=== PATIENT | female | born 1950 | race Caucasian/White ===

== ENCOUNTER 2021-04-06 07:57 | Day surgery (SDC) | payer MEDICARE ==
[~2021-04-06] VITALS: Ht 167.6 cm; Wt 98.3 kg
[2021-04-06 08:26] VITALS: BP 124/82
== END 2021-04-06 14:20 | disposition home or self-care (01) ==
LOC: OUT 07:57
PROVIDERS: ATTEND Orthopaedic Surgery
DX: M19.011 Primary osteoarthritis, right shoulder (principal); M25.711 Osteophyte, right shoulder; M24.011 Loose body in right shoulder; E78.5 Hyperlipidemia, unspecified; E03.9 Hypothyroidism, unspecified; Z20.822 Contact with and (suspected) exposure to COVID-19; Z79.899 Other long term (current) drug therapy
CPT/HCPCS: 23430; 23472; 64415; 87081; 93005; C1713; C1776; J2250; J3010; J3370; J7050; J7120; U0003; U0005